=== PATIENT | male | born 1950 | race Caucasian/White ===

== ENCOUNTER → 2017-01-27 | Outpatient (CLI) | payer OTHER | LOC: CAT 10:06 | DX: Z13.6 Encounter for screening for cardiovascular disorders (principal) ==

== ENCOUNTER 2017-11-02 18:17 | Inpatient (IN) | payer OTHER ==
[~2017-11-02] VITALS: Ht 177.8 cm; Wt 92.5 kg
--- NOTE | ~2017-11-02 | EKG ---
[address] [place] [address] ELECTROCARDIOGRAM REPORT Name: DOMINGA ESTRADA Room #: 428-P [facility] M.R.#: [id number] Admission: 11/02/17 Attend Phys: Mike Siu MD Discharge: 11/05/17 Date of : 52 Report #: [id number] THIS REPORT FOR: //name// [facility] ED Test Date: 2017-11-02 Test Time: 18:48:34 Pat Name: DOMINGA ESTRADA Department: Room: 428 Gender: M [employer] Operator: kelli : 1950 Requested By: Heri Lee Order Number: [id number] MD: Lamonte Young Measurements Intervals [place] Rate: 80 P: 54 MI: 274 QRS: -21 QRSD: 121 T: 35 QT: 424 QTc: 490 Interpretive Statements Sinus rhythm Sinus pause Prolonged MI interval Nonspecific intraventricular conduction delay Probable anteroseptal infarct, old No previous ECG available for comparison Electronically Signed On 11-05-2017 13:26:31 CDT by Lamonte Young [email or web address] <ELECTRONICALLY SIGNED> By: Lamonte Young MD, [facility] 11/05/17 1326 [id number] 47 Lamonte Young MD, [facility] /EPI
[2017-11-02 18:20] VITALS: BP 128/67
[2017-11-02 18:55] LABS: ABSOLUTE NEUTROPHILS 5.1 thou/uL (1.4-8.2); BASOPHILS 0.5 % (0.0-2.0); EOSINOPHILS 1.6 % (0.0-3.0); HEMATOCRIT 40.8 % (42.0-52.0); HEMOGLOBIN 14.1 gm/dL (14.0-18.0); LYMPHOCYTES 31.4 % (24.0-44.0); MCH 31.6 pg (26.0-34.0); MCHC 34.6 g/dL (28.0-37.0); MCV 91.3 fL (80.0-100.0); MONOCYTES 7.9 % (1.0-8.0); PLATELET COUNT 218 thou/uL (150-400); POLYS 58.6 % (36.0-66.0); RBC 4.47 mil/uL (4.50-6.00); RDW 14.1 % (10.5-14.5); WBC 8.7 thou/uL (4.0-11.0)
[2017-11-02] MEDS ORDERED: CRESTOR10 MG PO (19:09)
[2017-11-02 19:12] LABS: ANION GAP 17 mmol/L (7-16); BUN 12 mg/dL (7-18); CALCIUM 9.1 mg/dL (8.5-10.1); CHLORIDE 101 mmol/L (98-107); CO2 20 mmol/L (21-32); GLUCOSE 202 mg/dL (74-106); POTASSIUM 3.3 mmol/L (3.5-5.1); SODIUM 138 mmol/L (136-145)
[2017-11-02 19:20] LABS: ALBUMIN 3.6 g/dL (3.4-5.0); SGPT 66 U/L (30-65); TOTAL BILIRUBIN 0.6 mg/dL (<0.1-1.0); TOTAL PROTEIN 7.2 g/dL (6.4-8.2); TROPONIN-I < 0.04 ng/mL (<0.06)
[2017-11-02 19:32] LABS: SGOT 41 U/L (15-37)
[2017-11-02 21:23] VITALS: BP 120/71
[2017-11-02 22:00] VITALS: BP 144/80
[2017-11-03 02:20] VITALS: BP 140/85
[2017-11-03 04:05] VITALS: BP 129/78
[2017-11-03 06:54] LABS: CALCIUM 8.8 mg/dL (8.5-10.1); CREATININE 0.8 mg/dL (0.7-1.3); POTASSIUM 3.4 mmol/L (3.5-5.1)
[2017-11-03 07:34] VITALS: BP 138/76
[2017-11-03 15:39] VITALS: BP 144/80
[2017-11-03 19:20] VITALS: BP 134/74
[2017-11-03 23:57] VITALS: BP 147/76
[2017-11-04 04:42] VITALS: BP 136/74
[2017-11-04 07:52] VITALS: BP 139/79
[2017-11-04 16:08] VITALS: BP 117/51
[2017-11-04 20:51] VITALS: BP 135/79
[2017-11-05 04:39] VITALS: BP 117/84
[2017-11-05 05:57] LABS: HEMATOCRIT 41.5 % (42.0-52.0); HEMOGLOBIN 14.5 gm/dL (14.0-18.0); MCHC 34.8 g/dL (28.0-37.0); MCV 91.9 fL (80.0-100.0); RBC 4.51 mil/uL (4.50-6.00); RDW 13.8 % (10.5-14.5); WBC 7.8 thou/uL (4.0-11.0)
[2017-11-05 06:06] LABS: ALBUMIN 3.4 g/dL (3.4-5.0); CALCIUM 9.4 mg/dL (8.5-10.1); POTASSIUM 3.7 mmol/L (3.5-5.1); TOTAL BILIRUBIN 0.7 mg/dL (<0.1-1.0); TOTAL PROTEIN 7.6 g/dL (6.4-8.2)
[2017-11-05 07:19] VITALS: BP 135/74
[2017-11-05 10:48] VITALS: BP 135/74
[2017-11-05 10:51] VITALS: BP 135/74
== END 2017-11-05 11:34 | disposition home or self-care (01) | DRG 149 ==
LOC: ER 18:17 → 4E 21:04 → EROBS 21:04 → 4E 21:45
PROVIDERS: Hospitalist; Nurse Practitioner Family; Physician Assistant
DX: H81.10 Benign paroxysmal vertigo, unspecified ear (principal); E78.00 Pure hypercholesterolemia, unspecified; F12.90 Cannabis use, unspecified, uncomplicated; E78.5 Hyperlipidemia, unspecified; Z79.899 Other long term (current) drug therapy
CPT/HCPCS: 10183

== ENCOUNTER 2021-09-03 22:02 | Emergency (ER) | payer OTHER ==
[~2021-09-03] VITALS: Ht 177.8 cm; Wt 90.7 kg
[~2021-09-03 22:02] MED LIST: CRESTOR10 MG PO
[2021-09-03 22:10] VITALS: BP 147/68
[2021-09-03] MEDS ORDERED: MECLIZINE HCL12.5 MG PO (22:49)
[2021-09-03] MEDS ORDERED: ZOFRAN ODT4 MG PO (22:49)
[2021-09-03] MEDS ORDERED: VALIUM2 MG PO ×2 (22:49→23:19)
== END 2021-09-03 23:45 | disposition home or self-care (01) ==
LOC: ER 22:02
DX: R42 Dizziness and giddiness (principal); E78.00 Pure hypercholesterolemia, unspecified; Z79.899 Other long term (current) drug therapy